=== PATIENT | male | born 1965 | race Caucasian/White ===

== ENCOUNTER 2016-07-25 15:08 | Inpatient (IN) | payer MEDICARE ==
[2016-07-25] MEDS ORDERED: IBUPROFEN800 M1 PO (15:24)
[2016-07-25] MEDS ORDERED: ONDANSETRON HCL4 M2 PO (15:25)
[2016-07-25] MEDS ORDERED: CATAPRES0.2 M1 PO (15:26)
[2016-07-25] MEDS ORDERED: ULTRAM50 M1 PO (15:26)
[2016-07-25] MEDS ORDERED: CYCLOBENZAPRINE10 M1 PO (15:27)
[2016-07-25 16:28] LABS: BASO % 0.6 % (0-2); BASO ABSOLUTE COUNT 0.1 tho/cmm (0.0-0.2); EOS % 1.6 % (0-7); EOSINOPHIL ABSOLUTE COUNT 0.1 tho/cmm (0.0-0.7); HCT-HEMATOCRIT 35.3 % (36.0-53.5); HGB-HEMOGLOBIN 13.1 gm/dl (13.5-17.0); IMMATURE GRANULOCYTES ABSOLUTE 0.02 tho/cmm (0-0.03); IMMATURE GRANULOCYTES PERCENT 0.2 % (0-0.3); LYMPH % 17.3 % (20-45); LYMPH ABSOLUTE COUNT 1.5 tho/cmm (0.8-4.5); MCH (MEAN CORPUSCULAR HGB) 33.2 pg (28.0-32.0); MCV (MEAN CELL VOLUME) 89.4 fl (82.0-96.0); MEAN PLATELET VOLUME 10.4 cmc (9.4-12.4); MONO % 6.3 % (0-12); MONOCYTE ABSOLUTE COUNT 0.5 tho/cmm (0.0-1.2); NEUTROPHIL ABSOLUTE COUNT 6.4 tho/cmm (1.6-8.0); NEUTROPHIL-AUTOMATED 6.4 tho/cmm (1.6-8.0); PLATELET COUNT 260 tho/cmm (150-450); RED BLOOD COUNT 3.95 mil/cmm (4.40-5.70); RED CELL DISTRIBUTION WIDTH 12.6 % (12.4-16.4); WHITE BLOOD COUNT 8.6 tho/cmm (4.0-10.0)
[2016-07-25 16:34] LABS: MCHC MEAN CORPUSCULAR HGB CONC 37.1 % (32.0-36.0)
[2016-07-25 16:48] LABS: ANION GAP 18 mmol/L (0-20); BLOOD UREA NITROGEN 15 mg/dl (6-24); CALCIUM 8.9 mg/dl (8.5-10.5); CARBON DIOXIDE-VENOUS 23 mmol/L (22-32); CHLORIDE 96 mmol/l (96-110); CREATININE 0.75 mg/dl (0.60-1.30); GLUCOSE 73 mg/dL (70-110); SODIUM 134 mmol/L (135-145); eGFR VALUE FOR BLACK >90 mL/Min
[2016-07-25 16:55] LABS: POTASSIUM 2.8 mmol/L (3.7-5.1)
[2016-07-25 19:03] LABS: INR 1.1 INR (0.9-1.1); PROTHROMBIN TIME 12.7 SECONDS (9.0-13.6)
[2016-07-25 19:48] LABS: ALB/GLOB RATIO 0.9 (0.8-2.0); ALKALINE PHOSPHATASE 49 U/L (33-138); ALT/SGPT 28 U/L (12-78); AMYLASE 21 U/L (20-90); ANION GAP 16 mmol/L (0-20); AST/SGOT 31 U/L (10-40); BILIRUBIN,TOTAL 0.4 mg/dl (0.0-1.5); BLOOD UREA NITROGEN 16 mg/dl (6-24); CALCIUM 8.8 mg/dl (8.5-10.5); CARBON DIOXIDE-VENOUS 25 mmol/L (22-32); CHLORIDE 95 mmol/l (96-110); CREATININE 0.73 mg/dl (0.60-1.30); GLUCOSE 83 mg/dL (70-110); LIPASE 121 U/L (73-393); MAGNESIUM 1.7 mg/dl (1.3-2.6); OSMOLALITY 268 mOsm/kg (275-295); SODIUM 133 mmol/L (135-145); eGFR VALUE FOR BLACK >90 mL/Min
[2016-07-25 19:51] LABS: POTASSIUM 2.9 mmol/L (3.7-5.1)
[2016-07-25 19:52] LABS: TSH-THYROID STIMULATING HORM. 2.46 uIU/ml (0.40-3.80)
[2016-07-25 20:44] LABS: ACETAMINOPHEN LEVEL <2.1 ug/ml (10-30); CREATINE PHOSPHOKINASE (CPK) 170 U/L (35-232); PHOSPHOROUS 2.6 mg/dl (2.5-4.9)
[2016-07-25 20:45] LABS: ALCOHOL (ETOH) <10 mg/dl (<10); SALICYLATE 4.8 mg/dl (2.8-20)
[2016-07-25 20:48] LABS: CKMB 5.4 ng/ml (<3.6)
[2016-07-26 05:26] LABS: CKMB 6.1 ng/ml (<3.6)
[2016-07-26 06:22] LABS: URINE BILIRUBIN NEGATIVE (NEG); URINE BLOOD NEGATIVE (NEG); URINE GLUCOSE (UA) NEGATIVE (NEG); URINE KETONE MODERATE (NEG); URINE LEUKOCYTE ESTERASE NEGATIVE (NEG); URINE NITRITE NEGATIVE (NEG); URINE PROTEIN NEGATIVE (NEG); URINE SPECIFIC GRAVITY 1.015 (1.003-1.030)
[2016-07-26 06:26] LABS: URINE APPEARANCE CLEAR; URINE COLOR DARK YELLOW
[2016-07-27] MEDS ORDERED: medrol (13:56)
== END 2016-07-27 15:00 | DRG 74 ==
LOC: 5EB 15:08
PROVIDERS: Internal Medicine; Nurse Practitioner Acute Care; ADMIT Internal Medicine
PROC: 05H533Z Insertion of Infusion Device into Right Subclavian Vein, Percutaneous Approach (ICD-10-PCS; principal; 2016-07-25)
DX: M54.10 Radiculopathy, site unspecified (principal); I10 Essential (primary) hypertension; F12.929 Cannabis use, unspecified with intoxication, unspecified; M54.5 Low back pain; F10.10 Alcohol abuse, uncomplicated; K59.00 Constipation, unspecified; F17.210 Nicotine dependence, cigarettes, uncomplicated
CPT/HCPCS: A9503; A9577; C1751; G0480; J3480; J7050